=== PATIENT | male | born 1980 | race Caucasian/White ===

== ENCOUNTER 2016-10-16 10:00 | Day surgery (SDC) | payer SELFPAY ==
[2016-10-16] MEDS ORDERED: Dextrose 5%-Lactated Ringers 1,000 ML IV SCH (11:30)
[2016-10-16] MEDS ORDERED: fentaNYL 100 MCG/2 ML SDV ONE (11:45)
[2016-10-16] MEDS ORDERED: Propofol 200 MG/20 ML SDV ONE ×3 (11:45→13:15)
[2016-10-16] MEDS ORDERED: Midazolam 1 MG/ML 2 ML SDV ONE (11:46)
[2016-10-16 14:39] VITALS: BP 126/64
--- NOTE | 2016-10-19 11:08 | OR ---
DATE OF PROCEDURE: 10/16/2016 PREOPERATIVE DIAGNOSES: Abdominal cramping, nausea, and frequent loose stools. POSTOPERATIVE DIAGNOSES: 1. Esophagogastroduodenoscopy showing minimal esophagitis, but otherwise normal exam. 2. Normal colonoscopy exam. OPERATIVE PROCEDURES: 1. Esophagogastroduodenoscopy with biopsies of the duodenum to rule out celiac disease. 2. Flexible colonoscopy with collection of stool for cultures and random colorectal biopsies to rule out microscopic colitis. ANESTHESIA: IV sedation. INDICATION FOR PROCEDURE: A 36-year-old male presenting with roughly a 6-week history of crampy abdominal pain with some bloating, nausea, and frequent loose stools. He had 1-day course of Flagyl and Cipro, which had been prescribed empirically, but otherwise no additional treatment has been undertaken. At this point, the plan is to proceed with upper and lower endoscopy to evaluate the symptoms. We will plan to do at a minimum biopsies of duodenum to rule out celiac disease. Random colorectal biopsies, if no specific pathology is seen in the colon will be obtained as well to rule out microscopic colitis, and we will collect the stool for culture. Potential risks of the procedure including bleeding and perforation were discussed, and the patient wishes to proceed. DETAILS OF PROCEDURE: The patient was taken to the operating room and placed in a left lateral decubitus position. IV sedation was administered after which the upper GI endoscope was passed orally through the length of the esophagus and into the stomach with retroflexion view of the fundus, thereafter through the pyloric channel and into the proximal duodenum. The findings included some very slight redness of the distal esophagus. No significant hiatal hernia was present. The remainder of the gastric exam was unremarkable with there not being any significant inflammation nor retained food or bile within the stomach passed the scope through the pyloric channel. The duodenum likewise was normal with the extent of exam extending down into the beginning of the fourth portion of the duodenum. Multiple duodenal biopsies were then obtained and sent for histologic evaluation. Minimal bleeding from the biopsy sites was seen and the procedure then concluded. Attention was then taken to the colonoscopy. The initial digital rectal exam was performed and was unremarkable. Colonoscope was then passed into the rectum with retroflexion revealing uncomplicated hemorrhoidal columns. The scope was then eventually passed along the cecum. The prep was fair. There was a fair bit of liquid and some scattered solid stool present with the vast majority of the mucosal surfaces being visualized. No specific abnormalities at any point in the colonoscopic exam were noted. Stool was collected for a full battery of cultures and then random colorectal biopsies were obtained from the beginning of the cecum and extending down to the rectum and sent for histologic evaluation to rule out microscopic colitis. Minimal bleeding from those biopsy sites was seen and the scope was then removed and the procedure then concluded. At this point, we will have the patient resume his 10-day course of Cipro and Flagyl more or less as an empiric treatment. He is going to be heading out to [facility] to work in the [employer] over the weekend, and we will attempt to fax all of the reports as they become available to him in that area, and it will be most convenient for him to follow up with Internal Medicine and/or Gastroenterology in the [facility]. Casper Higginbotham MD /[id number]
== END 2016-10-16 14:45 | disposition home or self-care (01) ==
LOC: JP.SDS 10:00
PROVIDERS: ATTEND Surgery
DX: R10.9 Unspecified abdominal pain (principal); R11.0 Nausea; R19.7 Diarrhea, unspecified; F17.210 Nicotine dependence, cigarettes, uncomplicated
CPT/HCPCS: 43239; 45380; 87046; 87177; 87209; 87493; 87899; J2250; J2704; J3010; J7042; 88305